=== PATIENT | female | born 1980 | race Caucasian/White ===

== ENCOUNTER 2022-04-14 15:21 | Outpatient (RCR) | payer OTHER, SELFPAY ==
--- NOTE | 2022-04-08 19:25 | ONC.NURNOTE ---
Authorization: User: Zena Gonzalez Date: 11/18/21 09:31 Type: Eligibility Determination Note... Received request for Zoldex (J9202). Per [employer] on behalf of [employer], prior authorization is not required.
[2022-04-14 15:37] VITALS: BP 125/86; PULSE 65; RESP 16; TEMP 36.9; O2SAT 95
[2022-04-14] MEDS: GOSERELIN ACETATE 3.6 MG IMPLANT SUBCUT (16:15)
== END 2022-04-24 23:59 | disposition home or self-care (01) ==
LOC: CCIC 15:21
PROVIDERS: PCP Physician Assistant Medical; Visit Provider Internal Medicine Hematology & Oncology
DX: C50.911 Malignant neoplasm of unspecified site of right female breast (principal); Z17.0 Estrogen receptor positive status [ER+]; Z79.811 Long term (current) use of aromatase inhibitors
CPT/HCPCS: 96401; J9202

== ENCOUNTER 2022-07-28 08:54 | Day surgery (SDC) | payer OTHER, SELFPAY ==
[2022-07-28] VITALS (12 sets, daily range): BP systolic 92–133; BP diastolic 51–90; PULSE 65–87; RESP 16–18; TEMP 36.2–36.6; O2SAT 92–99; BMI 41.9
[2022-07-28 09:14] LABS: Ur HCG Qualitative* Negative (Negative)
[2022-07-28] MEDS: SODIUM CHLORIDE 0.9 % (FLUSH) 10 ML SYRINGE IVF (09:30)
[2022-07-28] MEDS: LACTATED RINGERS 1000 ML 1,000 ML 100 ML IV (09:30)
[2022-07-28] MEDS: CEFAZOLIN 2 GM INJ IVP (10:40)
[2022-07-28] MEDS: BUPIVACAINE 0.25% 30 ML INJECTION (11:08)
--- NOTE | 2022-07-28 11:15 | PM.ORPRC ---
Procedure Note Date of procedure: 07/28/22 Procedure: SURGEON: Rufus Orellana MD SCIENTIFIC MANAGER: GILMAR Nava PREOPERATIVE DIAGNOSIS: Right knee lateral meniscus tear POSTOPERATIVE DIAGNOSIS: Right knee lateral meniscus tear NAME OF OPERATION: Right knee arthroscopic partial lateral meniscectomy ANESTHESIA: Spinal ESTIMATED BLOOD LOSS: 0 mL COMPLICATIONS: None SPECIMENS: None DRAINS: None PREOPERATIVE ANTIBIOTICS: Ancef 2 gram INDICATIONS: The patient is a 42 year-old female with a history of right knee pain. MRI scan is consistent with a lateral meniscus tear. Despite appropriate nonoperative management, including activity modification, antiinflammatories, [id number] pain medication, bracing, physical therapy, and injections they continue to have pain and disability. Operative intervention was offered. The risks, benefits and expected outcomes were discussed in detail. These included but were not limited to: Infection, bleeding, injury to blood vessel or nerve, venous thromboembolism. All questions were answered to their satisfaction. PROCEDURE: Spinal anesthesia was administered. The patient was placed supine on the operating room table. The right lower extremity was prepped and draped in the usual sterile fashion. The limb was exsanguinated with the Robin bandage. The pneumatic tourniquet was inflated to 300 mmHg. A standard anterolateral portal was established. The arthroscope was introduced. The working portal was established anteromedially. Diagnostic arthroscopy was performed with findings as follows: The suprapatellar pouch is normal. Articular surface on the patella shows diffuse grade 1/2 change. Articular surface on the trochlea shows diffuse grade 3 change. The medial gutter is normal. The medial compartment shows focal grade 2/3 change on the medial femoral condyle, normal articular cartilage on the medial tibial plateau. The medial meniscus has some under surface, degenerative fraying of the leading edge of the junction of the midbody and posterior horn, without more meaningful tearing. The notch shows the ACL to be intact. The lateral compartment shows normal articular cartilage on the lateral femoral condyle and lateral tibial plateau. The lateral meniscus has an unstable flap tear of the midbody, displaced toward the gutter, the rest of the meniscus is intact. The lateral gutter is normal. The displaced flap of lateral meniscus was debrided with the shaver through both portals, contoured to a stable base. The undersurface of the posterior horn the medial meniscus was debrided with the shaver. Unstable chondral flaps on the medial femoral condyle and femoral trochlea and patella were debrided with the shaver. Arthroscopic instruments were removed, the portal sites were Steri-Stripped closed, the knee was infiltrated with 30 mL of 0.25% Marcaine without epinephrine. A dry dressing was applied, the tourniquet was released. Sponge and needle counts were correct x 2. The patient tolerated the procedure well. There were no apparent complications. They were carefully transferred to the hospital bed and taken to the postanesthesia care unit in satisfactory condition. PLAN: The patient will be discharged to home. They may weightbear as tolerates. Range of motion will be unrestricted. They will follow up in the office next week for a wound check.
--- NOTE | 2022-07-28 11:46 | W.ANESCHARGE ---
Anesthesia Charges Start Date/Time Anesthesia Start Date: 07/28/22 Anesthesia Start Time: 10:32 Stop Date/Time Anesthesia Stop Date: 07/28/22 Anesthesia Stop Time: 11:20 Summary Emergency: No
--- NOTE | 2022-07-28 14:24 | W.ANESCHARGE ---
Anesthesia Charges Start Date/Time Anesthesia Start Date: 07/28/22 Anesthesia Start Time: 10:32 Stop Date/Time Anesthesia Stop Date: 07/28/22 Anesthesia Stop Time: 11:20 Summary Emergency: No
== END 2022-07-28 12:40 | disposition home or self-care (01) ==
PROVIDERS: Anesthesiology; PCP Physician Assistant Medical; Visit Provider Orthopaedic Surgery
PROC: (CPT 29870; principal; 2022-07-28 10:45)
DX: M23.261 Derangement of other lateral meniscus due to old tear or injury, right knee (principal)
CPT/HCPCS: 29881; 01400; 81025; J0690; J2250; J2400; J2405; J2704; J3010; J3490; J7120

== ENCOUNTER 2022-10-27 15:30 | Outpatient (RCR) | payer BC, OTHER, SELFPAY ==
[2022-05-12 15:24] VITALS: BP 131/87; PULSE 87; RESP 16; TEMP 36.8; O2SAT 95
[2022-05-12] MEDS: GOSERELIN ACETATE 3.6 MG IMPLANT SUBCUT (16:02)
[2022-06-09 15:15] VITALS: BP 119/87; PULSE 74; RESP 14; TEMP 36.1; O2SAT 97
[2022-06-09] MEDS: GOSERELIN ACETATE 3.6 MG IMPLANT SUBCUT (15:34)
[2022-07-07] MEDS: GOSERELIN ACETATE 3.6 MG IMPLANT SUBCUT (15:45)
[2022-07-07 15:53] VITALS: BP 146/94; PULSE 69; RESP 18; TEMP 37.1; O2SAT 99
[2022-08-04 15:24] VITALS: BP 144/84; PULSE 89; RESP 16; TEMP 36.7; O2SAT 95
[2022-08-04] MEDS: GOSERELIN ACETATE 3.6 MG IMPLANT SUBCUT (15:47)
[2022-09-01 15:31] VITALS: BP 147/85; PULSE 91; RESP 16; TEMP 36.1; O2SAT 99
[2022-09-01] MEDS: GOSERELIN ACETATE 3.6 MG IMPLANT SUBCUT (15:37)
[2022-09-29 15:30] VITALS: BP 144/82; PULSE 73; RESP 16; TEMP 37.1; O2SAT 95
[2022-09-29] MEDS: GOSERELIN ACETATE 3.6 MG IMPLANT SUBCUT (15:35)
--- NOTE | 2022-10-07 15:44 | ONC.NURNOTE ---
Called in to [facility] per Angelica Merlos APRN 2 refills for Magnesium Oxide 400 mg BID #120; is working well for managing hot flashes.
[2022-10-27 15:26] VITALS: BP 141/91; PULSE 80; RESP 18; TEMP 36.7; O2SAT 97
[2022-10-27] MEDS: GOSERELIN ACETATE 3.6 MG IMPLANT SUBCUT (15:46)
== END 2022-11-06 23:59 | disposition home or self-care (01) ==
LOC: CCIC 15:30
PROVIDERS: PCP Physician Assistant Medical; Visit Provider Internal Medicine Hematology & Oncology
DX: C50.911 Malignant neoplasm of unspecified site of right female breast (principal); Z17.0 Estrogen receptor positive status [ER+]; Z79.811 Long term (current) use of aromatase inhibitors
CPT/HCPCS: 96372; 96401; 99212; 99213; 99214; J9202

== ENCOUNTER 2022-12-08 15:00 | Outpatient (CLI) | payer OTHER, SELFPAY ==
--- NOTE | 2022-12-08 15:20 | CRLHL7_ITS ---
For Patients: As a result of the Century Cures Act, medical imaging exams and procedure reports are released immediately into your electronic medical record. You may view this report before your referring provider. If you have questions, please contact your health care provider. BILATERAL SCREENING MAMMOGRAM WITH COMPUTER-AIDED DETECTION AND TOMOSYNTHESIS TECHNIQUE: CC and MLO views were obtained. These mammographic images have been obtained using full-field digital technique. These mammographic images were interpreted with the benefit of computer-aided detection. Breast Tomosynthesis was used in this interpretation. COMPARISON FILM: 12/06/21, 10/13/20. FINDINGS: The breasts are heterogeneously dense, which may obscure small masses IMPRESSION: There is no radiographic evidence for malignancy. ASSESSMENT: BI-RADS Category 2: Benign RECOMMENDATION: Routine screening mammogram in 1 year. A lay language report of this examination will be provided to the patient. Sandoval Celis M.D. Diagnostic Radiologist [email or web address] JAMI/Dictated by: Sandoval Celis MD @ 12/09/2022 9:34:00 AM (Electronically Signed)
== END 2022-12-08 15:01 | disposition home or self-care (01) ==
PROVIDERS: PCP Physician Assistant Medical; Visit Provider Physician Assistant Medical
DX: Z12.31 Encounter for screening mammogram for malignant neoplasm of breast (principal); R92.2 Inconclusive mammogram
CPT/HCPCS: 77063; 77067

== ENCOUNTER 2023-05-11 15:00 | Outpatient (RCR) | payer OTHER, SELFPAY ==
--- NOTE | 2022-11-22 11:38 | URNOTE ---
Request received for prior authorization of Zoladex (J9202). Patient carries [employer] as primary insurance. Per Rep. Leo at [facility] ([phone]) no prior authorization is required (Ref#[id number]) for Zoladex.
[2022-11-24] MEDS: GOSERELIN ACETATE 3.6 MG IMPLANT SUBCUT (15:37)
[2022-11-24 15:59] VITALS: BP 132/85; PULSE 60; RESP 16; TEMP 36.5; O2SAT 98
[2022-12-22] MEDS: GOSERELIN ACETATE 3.6 MG IMPLANT SUBCUT (15:41)
[2023-01-20 15:20] VITALS: BP 122/88; PULSE 71; RESP 16; TEMP 36.6; O2SAT 98
[2023-01-20] MEDS: GOSERELIN ACETATE 3.6 MG IMPLANT SUBCUT (15:34)
[2023-02-16 15:30] VITALS: BP 112/77; PULSE 63; RESP 16; TEMP 36.8; O2SAT 94
[2023-02-16] MEDS: GOSERELIN ACETATE 3.6 MG IMPLANT SUBCUT (15:45)
[2023-03-16 15:35] VITALS: BP 111/71; PULSE 64; RESP 16; TEMP 36.1; O2SAT 97
[2023-03-16] MEDS: GOSERELIN ACETATE 3.6 MG IMPLANT SUBCUT (15:40)
[2023-04-13 14:57] VITALS: BP 85/64; PULSE 58; RESP 16; TEMP 36.5; O2SAT 94
[2023-04-13] MEDS: GOSERELIN ACETATE 3.6 MG IMPLANT SUBCUT (14:59)
[2023-05-11] MEDS: GOSERELIN ACETATE 3.6 MG IMPLANT SUBCUT (15:07)
[2023-05-11 15:14] VITALS: BP 121/78; PULSE 63; RESP 16; TEMP 36.7; O2SAT 98
== END 2023-05-23 23:59 | disposition home or self-care (01) ==
LOC: CCIC 15:00
PROVIDERS: PCP Physician Assistant Medical; Referring Provider Physician Assistant Medical; Visit Provider Internal Medicine Hematology & Oncology
DX: C50.911 Malignant neoplasm of unspecified site of right female breast (principal); Z17.0 Estrogen receptor positive status [ER+]; Z79.811 Long term (current) use of aromatase inhibitors
CPT/HCPCS: 96401; 99212; 99213; 99214; J9202

== ENCOUNTER 2023-07-14 07:30 | Outpatient (CLI) | payer OTHER, SELFPAY ==
--- NOTE | 2023-07-14 08:00 | CRLHL7_ITS ---
For Patients: As a result of the Century Cures Act, medical imaging exams and procedure reports are released immediately into your electronic medical record. You may view this report before your referring provider. If you have questions, please contact your health care provider. CLINICAL INFORMATION: Right chest wall pain. History of breast cancer. TECHNIQUE: Contrast-enhanced CT of the chest was obtained in noncontrast, arterial, and venous phases. Coronal and sagittal reformatted images were obtained. Contrast: 75 mL of Isovue 370 intravenous contrast was injected uneventfully prior to image acquisition. Radiation Dose Estimate (Total Exam DLP): 580 mGy-cm. COMPARISON: None. FINDINGS: Chest: Thyroid: Unremarkable Lungs: No focal airspace opacities or pleural effusions. Mild bibasilar dependent atelectatic changes. Heart/Pericardium: Are normal in size. No pericardial effusions. No central filling defects within the main, left, and right pulmonary arteries. Lymph Nodes: No significant axillary, mediastinal, or hilar lymphadenopathy. Upper Abdomen: No acute findings in the visualized portions. Musculoskeletal: Surgical clips in the lateral right breast. No focal lytic or blastic lesions. Degenerative changes in the spine. IMPRESSION: 1. No acute findings in the chest. No discrete abnormality in the right chest wall. Please note that all CT scans at this facility use dose modulation, iterative reconstruction, and/or weight-based dosing when appropriate to reduce radiation dose to as low as reasonably achievable. Dictated by Dawson Nguyen MD @ 07/16/2023 3:28:28 PM (Electronically Signed)
== END 2023-07-14 07:31 | disposition home or self-care (01) ==
LOC: CT 07:31
PROVIDERS: PCP Physician Assistant Medical; Visit Provider Internal Medicine Hematology & Oncology
DX: R07.9 Chest pain, unspecified (principal); Z85.3 Personal history of malignant neoplasm of breast
CPT/HCPCS: 71260; Q9967

== ENCOUNTER 2023-07-18 09:25 | Outpatient (CLI) | payer OTHER, SELFPAY ==
--- NOTE | 2023-07-18 09:45 | CRLHL7_ITS ---
For Patients: As a result of the Cures Act, medical imaging exams and procedure reports are released immediately into your electronic medical record. You may view this report before your referring provider. If you have questions, please contact your health care provider. DIGITAL DIAGNSOTIC RIGHT MAMMOGRAM USING TOMOSYNTHESIS AND COMPUTER-AIDED DETECTION RIGHT BREAST ULTRASOUND CLINICAL HISTORY: RIGHT breast pain. COMPARISON: 12/08/2022, 12/06/2021. TECHNIQUE: Digital RIGHT mammogram in three projections. Tomosynthesis and CAD utilized. Real-time ultrasound imaging of RIGHT breast with imaging documentation. BREAST COMPOSITION: The breasts are heterogeneously dense, which may obscure small masses. FINDINGS: 3D CC, XCCL and MLO RIGHT breast mammogram images submitted. Post treatment changes are present to the RIGHT breast. Scar tissue noted. No suspicious masses or architectural distortion. Benign calcification noted. Targeted RIGHT breast ultrasound performed at 3 o`clock 10 cm from the nipple. Scar tissue is present with associated calcification measuring 1.5 x 0.6 x 1.3 cm consistent with fat necrosis. No abnormal vascularity. IMPRESSION: Benign fat necrosis. No evidence of malignancy. RECOMMENDATIONS: Routine screening mammography. Results and recommendations discussed with the patient. BI-RADS Category 2: Benign A lay language report of this examination will be provided to the patient. Dictated by Sandoval Celis MD @ 07/18/2023 12:02:11 PM shirin/Dictated by: Sandoval Celis MD @ 07/18/2023 12:02:00 PM (Electronically Signed)
--- NOTE | 2023-07-18 10:15 | CRLHL7_ITS ---
For Patients: As a result of the Cures Act, medical imaging exams and procedure reports are released immediately into your electronic medical record. You may view this report before your referring provider. If you have questions, please contact your health care provider. PLEASE SEE DIGITAL DIAGNOSTIC RIGHT MAMMOGRAM PERFORMED SAME DAY CRL:shanthi maki/Dictated by: Sandoval Celis MD @ 07/18/2023 12:02:00 PM (Electronically Signed)
== END 2023-07-18 09:26 | disposition home or self-care (01) ==
LOC: MAMMO 09:26
PROVIDERS: PCP Physician Assistant Medical; Visit Provider Internal Medicine Hematology & Oncology
DX: N64.4 Mastodynia (principal); R92.2 Inconclusive mammogram
CPT/HCPCS: 76642; 77065; G0279

== ENCOUNTER 2023-11-29 15:00 | Outpatient (RCR) | payer BC, OTHER, SELFPAY ==
[2023-06-08 14:12] VITALS: BP 128/81; PULSE 68; RESP 16; TEMP 36.8; O2SAT 97
[2023-06-08] MEDS: GOSERELIN ACETATE 3.6 MG IMPLANT SUBCUT (14:41)
--- NOTE | 2023-07-05 07:38 | URNOTE ---
Request received for Dosing Limits on Zoladex (J9202). Pt carries [employer] as primary insurance (plan active). Per. Rep. Alphonse Jonas at [facility] [employer] [employer] ([phone]) no prior authorization is required for Zoladex (J9202), there are dosing limits on [employer] website state a Quantity Limit (max daily dose) ? 3.6mg injection ? 1 injection every 28 days.
[2023-07-05] MEDS: GOSERELIN ACETATE 3.6 MG IMPLANT SUBCUT (08:55)
[2023-08-02 15:09] VITALS: BP 111/72; PULSE 58; RESP 16; TEMP 36.4; O2SAT 98
[2023-08-02] MEDS: GOSERELIN ACETATE 3.6 MG IMPLANT SUBCUT (15:20)
[2023-08-30 15:10] VITALS: BP 118/87; PULSE 73; RESP 16; TEMP 36.4; O2SAT 97
[2023-08-30] MEDS: GOSERELIN ACETATE 3.6 MG IMPLANT SUBCUT (15:17)
--- NOTE | 2023-09-29 10:04 | URNOTE ---
Request received for prior authorization of Zoladex (J9202). Patient carries [facility] as primary insurance. Per Rep. Sosa Ellsworth on behalf of [facility]- Zoladex (J9202) approved Auth #[id number] Date Range: 09/29/23 to 05/26/24.
[2023-09-29] MEDS: GOSERELIN ACETATE 3.6 MG IMPLANT SUBCUT (14:55)
[2023-09-29 15:00] VITALS: BP 133/93; PULSE 64; RESP 16; TEMP 36.7; O2SAT 97
[2023-11-01 15:12] VITALS: BP 129/82; PULSE 63; RESP 16; TEMP 36.1; O2SAT 98
[2023-11-01] MEDS: GOSERELIN ACETATE 3.6 MG IMPLANT SUBCUT (15:21)
[2023-11-29 14:46] VITALS: BP 112/72; PULSE 67; RESP 16; TEMP 36.7; O2SAT 96
[2023-11-29] MEDS: GOSERELIN ACETATE 3.6 MG IMPLANT SUBCUT (14:57)
== END 2023-12-05 23:59 | disposition home or self-care (01) ==
LOC: CCIC 15:00
PROVIDERS: PCP Physician Assistant Medical; Referring Provider Physician Assistant Medical; Visit Provider Internal Medicine Hematology & Oncology
DX: C50.911 Malignant neoplasm of unspecified site of right female breast (principal); Z17.0 Estrogen receptor positive status [ER+]; Z79.811 Long term (current) use of aromatase inhibitors
CPT/HCPCS: 96401; 99212; 99214; G0463; J9202

== ENCOUNTER 2023-12-14 12:43 | Outpatient (CLI) | payer BC, SELFPAY ==
--- NOTE | 2023-12-14 13:00 | XR_ITS ---
Patient: GEN YE Facility:?[facility] Patient ID:?[id number] Site Patient ID:?[id number]. Site :?1980 Study:?DEXA-Bone Density -12/14/2023 1:34:36 PM Ordering Physician:CHRISTINA PEREYRA Final Report: DXA BONE MINERAL DENSITY STUDY Reason for exam: Aromatase inhibitor. Current height (in): 67. Weight (lb): 240. Menopause age: 40. Ethnicity: White. 1. Have you had a previous hip or vertebral fracture? No. 2. Have you had any fractures during your adult life which did not result from significant trauma (e.g., auto accident)? No. 3. Did either of your parents have a hip fracture? No. 4. Do you smoke? No. 5. Have you ever taken Glucocorticoids? No. 6. Do you have rheumatoid arthritis? No. 7. Do you have secondary osteoporosis? No. 8. Do you drink 3 or more alcoholic drinks per day? No. 9. Are you being treated for osteoporosis? No. 10. Have you ever taken any of the following medications: Actonel, Evista, Fosamax, Miacalcin, Reclast, Boniva, Forteo, HRT (i.e., estrogen/hormone therapy), Protelos, Prolia, Vitamin D, Calcium, other ? please specify. ANSWER: Yes, vitamin D, HRT (i.e. estrogen/hormone therapy), and calcium. 11. Do you have any of the following medical conditions: Anorexia or bulimia, asthma or emphysema, end stage renal disease, hyperparathyroidism, any seizure disorders, cancer, inflammatory bowel diseases, hysterectomy, other ? please specify. ANSWER: Yes, cancer. 12. What was your maximum height (inches)? 67. 13. Do you perform weight bearing exercise regularly? Yes. 14. Do you regularly consume dairy products? Yes. 15. Do you drink caffeinated beverages? Yes. If female: 16. At what age did your period start? 12. 17. Are you premenopausal? No. 18. How many full-term pregnancies have you had? 0. 19. Have you ever missed your period for more than 6 months in a row (not including or menopause)? No. TECHNIQUE: Bone mineral density study was performed using the [employer]. FINDINGS: The results of the study expressed as bone mineral density (BMD) are as follows: Lumbar spine L1 to L4: BMD: 1.097 g/cm2. T-score: 0.5. Z-score: 0.8 Neck Left: BMD: 0.905 g/cm2. T-score: 0.5. Z-score: 0.9 Right: BMD: 0.859 g/cm2. T-score: 0.1. Z-score: 0.5 Total Left: BMD: 1.051 g/cm2. T-score: 0.9. Z-score: 1.2 Right: BMD: 1.029 g/cm2. T-score: 0.7. Z-score: 1.0 IMPRESSION: Normal bone density. *Comparison exams done prior to 02/2020 were performed on different unit, [employer]. COMPARISON: Compared with scan of 07/28/2021, the bone mineral density has decreased by 6.2 percent at the spine and decreased by 4.1 percent at the hip. Sandoval Celis M.D. Diagnostic Radiologist [email or web address] SHI/shanthi D& Transcribed: 12:22 p.mVadim maki/Dictated by: Sandoval Celis MD @ 12/15/2023 9:39:00 AM Signed by:?Sandoval Celis MD @12/15/2023 1:19:34 PM (Electronic Signature)
--- NOTE | 2023-12-14 13:40 | MM_ITS ---
Patient: GEN YE Facility:?[facility] Patient ID:?[id number] Site Patient ID:?[id number]. Site :?1980 Study:?XRay-Breast Bilateral 3D W/CAD-12/14/2023 2:17:47 PM Ordering Physician:?Chitra Rader Final Report: BILATERAL SCREENING MAMMOGRAM WITH COMPUTER-AIDED DETECTION AND TOMOSYNTHESIS TECHNIQUE: CC and MLO views were obtained. These mammographic images have been obtained using full-field digital technique. These mammographic images were interpreted with the benefit of computer-aided detection. Breast Tomosynthesis was used in this interpretation. COMPARISON FILM: , 12/06/21, 10/13/20. FINDINGS: The breasts are heterogeneously dense, which may obscure small masses. IMPRESSION: There is no radiographic evidence for malignancy. ASSESSMENT: BI-RADS Category 1: Negative RECOMMENDATION: Routine screening mammogram in 1 year. A lay language report of this examination will be provided to the patient. Sandoval Celis M.D. Diagnostic Radiologist [email or web address] DSM/sp R& Transcribed: 5:56 p.m. SP/Dictated by: Sandoval Celis MD @ 12/15/2023 9:08:00 AM Signed by:?Sandovla Celis MD @12/15/2023 8:19:17 PM (Electronic Signature)
== END 2023-12-14 12:44 | disposition home or self-care (01) ==
LOC: RAD 12:45
PROVIDERS: PCP Physician Assistant Medical; Visit Provider Physician Assistant Medical
DX: Z12.31 Encounter for screening mammogram for malignant neoplasm of breast (principal); R92.2 Inconclusive mammogram; Z79.811 Long term (current) use of aromatase inhibitors
CPT/HCPCS: 77063; 77067; 77080

== ENCOUNTER 2024-06-13 15:00 | Outpatient (RCR) | payer BC, SELFPAY ==
[2023-12-27] MEDS: GOSERELIN ACETATE 3.6 MG IMPLANT SUBCUT (15:03)
--- NOTE | 2024-01-24 14:43 | ONC.NURNOTE ---
Patient comes into infusion center today, stating that she feels that her oxybutylin may be causing her heartburn. She has noticed this over the last few weeks, but had episode that resulted vomiting on Monday. She has since stopped taking this and is feeling much better. She liked the ability to sleep better, but would like to try something else for hot flashes that won't cause her heartburn to flare. Nursing to discuss options with provider next week and call patient with suggestions.
[2024-01-24 14:48] VITALS: BP 135/88; PULSE 63; RESP 16; TEMP 35.7; O2SAT 98
[2024-01-24] MEDS: GOSERELIN ACETATE 3.6 MG IMPLANT SUBCUT (14:58)
--- NOTE | 2024-02-06 09:19 | ONC.NURNOTE ---
Received call from pt noting [place] after PA/insurance coverage is still $120/month. She notes this is cost-prohibitive in relation to the significance of her hot flashes and will manage without. Reviewed hot flash strategies; she is also using Magnesium. She had an adverse reaction of severe GERD from Oxybutynin and is unable to continue. Recommend pt see a provider in coming weeks to explore other management options. Pt is agreeable to this plan. February appt with Corrina Arriola PA-C moved up 1 mo to next Zoladex injection, 02/21.
[2024-02-22 14:57] LABS: Albumin* 4.2 g/dL (3.3-5.0)
[2024-02-22 15:00] LABS: Alanine Aminotransferase* 21 U/L (4-35); Alkaline Phosphatase* 77 U/L (40-150); Aspartate Amino Transferase* 26 U/L (12-35); Bilirubin Direct* 0.5 mg/dL (0.0-0.5); Bilirubin Total* 0.5 mg/dL (0.1-1.5); Total Protein* 7.6 g/dL (6.0-8.3)
[2024-02-22] MEDS: GOSERELIN ACETATE 3.6 MG IMPLANT SUBCUT (15:56)
[2024-03-21 14:37] VITALS: BP 110/74; PULSE 68; RESP 16; TEMP 36.6; O2SAT 94
[2024-03-21] MEDS: GOSERELIN ACETATE 3.6 MG IMPLANT SUBCUT (14:43)
[2024-04-18 14:50] VITALS: BP 127/80; PULSE 69; RESP 16; TEMP 36.9; O2SAT 95
[2024-04-18] MEDS: GOSERELIN ACETATE 3.6 MG IMPLANT SUBCUT (15:11)
[2024-05-16 14:56] VITALS: BP 110/73; PULSE 64; RESP 16; TEMP 36.6; O2SAT 93
[2024-05-16] MEDS: GOSERELIN ACETATE 3.6 MG IMPLANT SUBCUT (15:14)
[2024-05-16 15:19] LABS: Albumin* 4.1 g/dL (3.3-5.0)
[2024-05-16 15:22] LABS: Alkaline Phosphatase* 78 U/L (40-150); Aspartate Amino Transferase* 32 U/L (12-35); Bilirubin Direct* 0.2 mg/dL (0.0-0.5); Bilirubin Total* 0.3 mg/dL (0.1-1.5); Total Protein* 6.9 g/dL (6.0-8.3)
[2024-05-16 15:23] LABS: Alanine Aminotransferase* 22 U/L (4-35)
--- NOTE | 2024-06-10 15:21 | URNOTE ---
Per [employer], prior auth is not required for Zoladex (J9202).
[2024-06-13] MEDS: GOSERELIN ACETATE 3.6 MG IMPLANT SUBCUT (15:03)
[2024-06-13 15:08] VITALS: BP 115/77; PULSE 60; RESP 16; TEMP 36.3; O2SAT 93
== END 2024-06-24 23:59 | disposition home or self-care (01) ==
LOC: CCIC 15:00
PROVIDERS: Physician Assistant; PCP Physician Assistant Medical; Referring Provider Physician Assistant Medical; Visit Provider Internal Medicine Hematology & Oncology
DX: C50.911 Malignant neoplasm of unspecified site of right female breast (principal); Z17.0 Estrogen receptor positive status [ER+]; Z79.811 Long term (current) use of aromatase inhibitors
CPT/HCPCS: 36415; 80076; 96401; 99213; 99214; G0463; J9202

== ENCOUNTER 2024-12-16 12:32 | Outpatient (CLI) | payer BC, SELFPAY ==
--- NOTE | 2024-12-16 13:00 | CRLHL7_ITS ---
For Patients: As a result of the Century Cures Act, medical imaging exams and procedure reports are released immediately into your electronic medical record. You may view this report before your referring provider. If you have questions, please contact your health care provider. BILATERAL SCREENING MAMMOGRAM WITH COMPUTER-AIDED DETECTION AND TOMOSYNTHESIS TECHNIQUE: CC and MLO views were obtained. These mammographic images have been obtained using full-field digital technique. These mammographic images were interpreted with the benefit of computer-aided detection. Breast tomosynthesis was used in this interpretation. COMPARISON FILM: 12/14/23, 12/08/22, 12/06/21. FINDINGS: The breasts are heterogeneously dense, which may obscure small masses. IMPRESSION: There is no radiographic evidence for malignancy. ASSESSMENT: BI-RADS Category 2: Benign RECOMMENDATION: Routine screening mammogram in 1 year. A lay language report of this examination will be provided to the patient. SANDOVAL FALCON M.D. Diagnostic Radiologist [email or web address] SHI/haris Transcribed: 12/23/2024, 5:[address]/Dictated by: Sandoval Falcon MD @ 12/23/2024 10:43:00 AM (Electronically Signed)
== END 2024-12-16 12:33 | disposition home or self-care (01) ==
LOC: MAMMO 12:33
PROVIDERS: PCP Physician Assistant Medical; Visit Provider Physician Assistant Medical
DX: Z12.31 Encounter for screening mammogram for malignant neoplasm of breast (principal); R92.333 Mammographic heterogeneous density, bilateral breasts
CPT/HCPCS: 77063; 77067

== ENCOUNTER 2024-12-26 15:00 | Outpatient (RCR) | payer BC, SELFPAY ==
[2024-07-11 14:46] VITALS: BP 139/86; PULSE 63; RESP 16; TEMP 36.9; O2SAT 96
[2024-07-11] MEDS: GOSERELIN ACETATE 3.6 MG IMPLANT SUBCUT (14:57)
[2024-08-08 14:46] VITALS: BP 123/82; PULSE 47; RESP 16; TEMP 36.1; O2SAT 99
[2024-08-08] MEDS: GOSERELIN ACETATE 3.6 MG IMPLANT SUBCUT (15:04)
[2024-08-08 15:23] LABS: Albumin* 4.3 g/dL (3.3-5.0)
[2024-08-08 15:25] LABS: Bilirubin Direct* 0.2 mg/dL (0.0-0.5); Bilirubin Total* 0.2 mg/dL (0.1-1.5)
[2024-08-08 15:26] LABS: Alanine Aminotransferase* 42 U/L (4-35); Alkaline Phosphatase* 73 U/L (40-150); Aspartate Amino Transferase* 42 U/L (12-35); Total Protein* 7.3 g/dL (6.0-8.3)
[2024-09-05 14:53] VITALS: BP 91/71; PULSE 71; RESP 16; TEMP 36.9; O2SAT 95
[2024-09-05] MEDS: GOSERELIN ACETATE 3.6 MG IMPLANT SUBCUT (15:08)
[2024-10-03 14:48] VITALS: BP 112/77; PULSE 74; RESP 16; TEMP 36.6; O2SAT 97
[2024-10-03] MEDS: GOSERELIN ACETATE 3.6 MG IMPLANT SUBCUT (14:52)
[2024-10-31 14:59] VITALS: BP 114/75; PULSE 59; RESP 16; TEMP 36.6; O2SAT 97
[2024-10-31] MEDS: GOSERELIN ACETATE 3.6 MG IMPLANT SUBCUT (15:04)
[2024-11-28 14:40] VITALS: BP 114/72; PULSE 75; RESP 16; TEMP 36.6; O2SAT 96
[2024-11-28] MEDS: GOSERELIN ACETATE 3.6 MG IMPLANT SUBCUT (14:56)
[2024-11-28 15:26] LABS: Albumin* 4.4 g/dL (3.3-5.0)
[2024-11-28 15:29] LABS: Alanine Aminotransferase* 20 U/L (4-35); Alkaline Phosphatase* 79 U/L (40-150); Aspartate Amino Transferase* 26 U/L (12-35); Bilirubin Direct* 0.2 mg/dL (0.0-0.5); Bilirubin Total* 0.4 mg/dL (0.1-1.5); Total Protein* 7.6 g/dL (6.0-8.3)
[2024-12-26 14:41] VITALS: BP 126/78; PULSE 63; RESP 22; TEMP 36.6; O2SAT 98
[2024-12-26] MEDS: GOSERELIN ACETATE 3.6 MG IMPLANT SUBCUT (15:03)
== END 2025-01-07 23:59 | disposition home or self-care (01) ==
LOC: CCIC 15:00
PROVIDERS: PCP Physician Assistant Medical; Referring Provider Physician Assistant Medical; Visit Provider Internal Medicine Hematology & Oncology
DX: C50.911 Malignant neoplasm of unspecified site of right female breast (principal); Z17.0 Estrogen receptor positive status [ER+]; Z79.811 Long term (current) use of aromatase inhibitors
CPT/HCPCS: 36415; 80076; 96401; 96402; 99214; 99215; G0463; J9202

== ENCOUNTER 2025-07-10 14:30 | Outpatient (RCR) | payer BC, SELFPAY ==
[2025-01-23 14:38] VITALS: BP 128/69; PULSE 68; RESP 18; TEMP 36.7; O2SAT 97
[2025-01-23] MEDS: GOSERELIN ACETATE 3.6 MG IMPLANT SUBCUT (14:59)
--- NOTE | 2025-02-12 10:14 | ONC.NURNOTE ---
NING Pinto submitted and approved through 02/11/2026
[2025-02-20 14:38] VITALS: BP 122/78; PULSE 57; RESP 14; TEMP 36.9; O2SAT 100
[2025-02-20] MEDS: GOSERELIN ACETATE 3.6 MG IMPLANT SUBCUT (15:03)
[2025-02-20 15:46] LABS: Albumin* 4.3 g/dL (3.3-5.0)
[2025-02-20 15:49] LABS: Alanine Aminotransferase* 27 U/L (4-35); Alkaline Phosphatase* 76 U/L (40-150); Aspartate Amino Transferase* 33 U/L (12-35); Bilirubin Direct* 0.4 mg/dL (0.0-0.5); Bilirubin Total* 0.4 mg/dL (0.1-1.5); Total Protein* 7.3 g/dL (6.0-8.3)
[2025-03-20 14:42] VITALS: BP 103/71; PULSE 57; RESP 16; TEMP 36.4; O2SAT 97
[2025-03-20] MEDS: GOSERELIN ACETATE 3.6 MG IMPLANT SUBCUT (15:26)
[2025-04-17 14:51] VITALS: BP 120/79; PULSE 70; TEMP 36.7; O2SAT 94
[2025-04-17] MEDS: GOSERELIN ACETATE 3.6 MG IMPLANT SUBCUT (15:05)
[2025-05-15 14:53] VITALS: BP 110/77; PULSE 54; RESP 17; TEMP 36.9; O2SAT 92
[2025-05-15] MEDS: GOSERELIN ACETATE 3.6 MG IMPLANT SUBCUT (15:13)
[2025-06-12 14:48] VITALS: BP 122/81; PULSE 73; RESP 16; TEMP 36.4; O2SAT 94
[2025-06-12] MEDS: GOSERELIN ACETATE 3.6 MG IMPLANT SUBCUT (14:52)
[2025-06-12 15:04] LABS: Albumin* 4.2 g/dL (3.3-5.0)
[2025-06-12 15:07] LABS: Alanine Aminotransferase* 23 U/L (4-35); Alkaline Phosphatase* 76 U/L (40-150); Aspartate Amino Transferase* 32 U/L (12-35); Bilirubin Direct* 0.2 mg/dL (0.0-0.5); Bilirubin Total* 0.3 mg/dL (0.1-1.5); Total Protein* 7.3 g/dL (6.0-8.3)
[2025-07-10 14:33] VITALS: BP 127/86; PULSE 75; RESP 16; TEMP 36.6; O2SAT 94
[2025-07-10] MEDS: GOSERELIN ACETATE 3.6 MG IMPLANT SUBCUT (14:59)
== END 2025-07-22 23:59 | disposition home or self-care (01) ==
LOC: CCIC 14:30
PROVIDERS: PCP Physician Assistant Medical; Referring Provider Physician Assistant Medical; Visit Provider Internal Medicine Hematology & Oncology
DX: C50.911 Malignant neoplasm of unspecified site of right female breast (principal); Z17.0 Estrogen receptor positive status [ER+]; Z79.811 Long term (current) use of aromatase inhibitors
CPT/HCPCS: 36415; 80076; 96402; 99214; G0463; J9202

== ENCOUNTER 2025-08-22 07:30 | Outpatient (RCR) | payer BC, SELFPAY | END 2025-08-22 08:27 | disposition home or self-care (01) | PROVIDERS: PCP Physician Assistant Medical; Visit Provider Physician Assistant Medical | DX: M79.644 Pain in right finger(s) (principal); G89.29 Other chronic pain; M19.031 Primary osteoarthritis, right wrist; Z51.89 Encounter for other specified aftercare | CPT/HCPCS: 97035; 97110; 97140; 97165; 97535; L3913; X5282 ==